=== PATIENT | female | born 1940 | race Asian ===

== ENCOUNTER 2018-03-21 14:39 | Outpatient (CLI) | payer OTHER | END 2018-03-21 23:59 | disposition home or self-care (01) | LOC: US 14:39 | DX: M79.669 Pain in unspecified lower leg (principal) ==

== ENCOUNTER 2020-05-21 09:18 | Outpatient (CLI) | payer OTHER | END 2020-05-21 22:14 | disposition home or self-care (01) | LOC: US 09:18 | DX: M79.662 Pain in left lower leg (principal); R22.42 Localized swelling, mass and lump, left lower limb ==